=== PATIENT | female | born 1945 | race Hispanic/Latino ===

== ENCOUNTER 2018-03-11 21:59 | Emergency (ER) | payer OTHER ==
[~2018-03-11] VITALS: Ht 157.5 cm; Wt 75.0 kg
[~2018-03-11 21:59] MED LIST: ASPIRIN EC81 MG PO; CARVEDILOL6.25 MG PO; CLONAZEPAM0.5 MG PO; CLOPIDOGREL75 MG PO; DONEPEZIL HCL5 MG PO; FENOFIBRATE145 MG PO; MEDROL4 MG/DOSE-; MELOXICAM15 MG PO; METFORMIN HCL500 M1 PO; RAMIPRIL5 MG PO; SERTRALINE HCL100 MG PO
--- OUTSIDE RECORDS SUMMARY | 2018-03-11 22:02 | XMS REPORT | Clinical Summary ---
Author Author [facility] Organization [facility] Address Unknown Phone Unavailable Care Team Providers Care Staffing Executive Name Role Phone Asked, Pcp PCP Unavailable Allergies Active Allergy Reactions Severity Noted Date Comments Iodine Itching 02/20/2017 Current Medications Prescription Sig. Disp. Refills Start End Date Status Date ramipril (ALTACE) 5 MG Take 5 mg by mouth daily. Active capsule donepezil (ARICEPT) 10 MG Take 10 mg by mouth Active tablet nightly. carvedilol (COREG) 6.25 Take 6.25 mg by mouth Active MG tablet daily. memantine (NAMENDA) 10 MG Take 10 mg by mouth 2 Active tablet (two) times a day. metFORMIN (GLUCOPHAGE) Take 500 mg by mouth 2 Active 500 mg tablet (two) times a day. sertraline (ZOLOFT) 100 Take 50 mg by mouth Active MG tablet nightly. aspirin (ECOTRIN) 81 MG Take 81 mg by mouth Active enteric coated tablet daily. atorvastatin (LIPITOR) 10 Take 10 mg by mouth Active MG tablet nightly. clopidogrel (PLAVIX) 75 Take 75 mg by mouth Active mg tablet daily. ergocalciferol (VITAMIN Take 50,000 Units by Active D2) 50,000 unit capsule mouth once a week. clonAZEPAM (KlonoPIN) 0.5 Take 0.25 mg by mouth Active MG tablet nightly. acetaminophen-codeine Take 1 tablet by mouth 2 02/18/20 Active (TYLENOL WITH CODEINE #3) (two) times a day as 17 300-30 mg per tablet needed for moderate pain (score 4-6). Active Problems Problem Noted Date Anxiety about health 02/22/2017 Social History Tobacco Use Types Packs/Day Years Used Date Never Smoker Alcohol Use Drinks/Week oz/Week Comments No Sex Assigned at Date Recorded Not on file Last Filed Vital Signs Not on file Plan of Treatment Health Maintenance Due Date Last Done Comments BREAST CANCER SCREENING 1995 COLON CANCER SCREENING 1995 SHINGRIX VACCINE (#1) 1995 ZOSTER VACCINE 2005 PNEUMOCOCCAL 2010 POLYSACCHARIDE VACCINE AGE 65 AND OVER PNEUMOCOCCAL-13 2010 INFLUENZA VACCINE 05/10/2018 Results Not on fileafter 03/10/2017 Insurance Payer Benefit Subscriber ID Type Phone Address Plan / Group TEX[employer] TEXAN[employer]US xxxxxxxxx [facility] Home: [address] [facility] [address] [place] [phone]
[2018-03-11] MEDS ORDERED: HYDROCODONE/APAP 5MG-325MG TAB PO ONE (23:15)
[2018-03-11 23:18] VITALS: BP 150/70
== END 2018-03-11 23:49 | disposition home or self-care (01) ==
LOC: FSED 21:59
DX: M54.6 Pain in thoracic spine (principal); M54.5 Low back pain
CPT/HCPCS: 71046; 80048; 81003; 83880; 85025; 99283

== ENCOUNTER 2018-03-18 20:46 | Observation (INO) | payer OTHER ==
[~2018-03-18] VITALS: Ht 162.6 cm; Wt 77.1 kg
[2018-03-18] MEDS: SODIUM CHLORIDE 0.9% 1000ML 1,000 ML IV SCH (01:10)
--- OUTSIDE RECORDS SUMMARY | 2018-03-18 20:49 | XMS REPORT | Continuity of Care Document ---
Author Author [facility] Organization [facility] Address [address] [place] [address] Phone Unavailable Care Team Providers Care Baler Name Role Phone ANGELES BRYANT MD PCP Insurance Providers Guarantor Francesca Szymanski Address [address] [place] [address] Email NONE Payer [email or web address] Policy Number [id number] Subscriber's Name Francesca Szymanski Relationship 18 Self / Same As Patient Group Name RETIRED Effective Date 10 Advance Directives Directive Response Recorded Date/Time Does the patient have an advance directive? No 06/08/13 11:42am If yes, is advance directive on file with [facility]? No 06/08/13 11:42am If not on file with [facility] will patient provide a copy? Yes 04/14/16 3:07pm Do you have a Directive to Physician? No 03/11/18 11:03pm Do you have a Medical Power of Community Health Educator? No 03/11/18 11:03pm Do you have an out of hospital Do Not Resuscitate Order? No 03/11/18 11:03pm Do you have any special needs we should be aware of? No 03/11/18 11:03pm Do you have a support person here with you today? Yes 03/11/18 11:03pm Did patient receive Notice of Privacy Practices? Yes 03/11/18 11:03pm Did patient receive patient rights and responsibilities? Yes 03/11/18 11:03pm Problems No problem information available. Medications Current Home Medications Medication Dose Units Route Directions Days Qty Instructions Start Date Aspirin (Aspirin Ec) 81 Mg Tablet.dr 81 Mg Oral Daily Carvedilol 6.25 Mg Tablet 6.25 Mg Oral Twice A Day Clonazepam 0.5 Mg Tablet 0.5 Mg Oral Daily Clopidogrel Bisulfate (Clopidogrel) 75 Mg Tablet 75 Mg Oral Daily Donepezil Hcl 5 Mg Tablet 5 Mg Oral Daily Fenofibrate Nanocrystallized (Fenofibrate) 145 Mg Tablet 145 Mg Oral Daily Meloxicam 15 Mg Tablet 15 Mg Oral Daily Metformin Hcl (Metformin Hcl Er) 500 Mg Tab.er.24h 500 Mg Oral Twice A Day Methylprednisolone (Medrol Dose Pack) 4 Mg/Dose Pack Tab Ramipril 5 Mg Capsule 5 Mg Oral Daily Sertraline Hcl 100 Mg Tablet 100 Mg Oral Daily Social History Smoking Status Start Date Stop Date Never Smoker Hospital Discharge Instructions No hospital discharge instruction information available. Plan of Care Discharge Date 03/11/18 11:49pm Disposition HOME, SELF-CARE Condition at Discharge Stable Instructions/Education Provided Back Pain Forms Provided Work/School Excuse Prescriptions See Medication Section Functional Status No functional status information available. Allergies, Adverse Reactions, Alerts Allergen Type Severity Reaction Status Last Updated IODINE/SHELLFISH Allergy Intermediate Active 08/18/13 Immunizations No immunization information available. Vital Signs Acute Vital Signs Vital Response Date/Time Temperature (Fahrenheit) 97.0 degrees F (97.6 - 99.5) 03/11/2018 11:18pm Pulse Pulse Rate (adult) 78 bpm (60 - 90) 03/11/2018 11:18pm Respiratory Rate 20 bpm (12 - 24) 03/11/2018 11:18pm Blood Pressure 150/70 mm Hg 03/11/2018 11:18pm Height 5 ft 2 in 03/11/2018 10:34pm Weight 165.31 lb 03/11/2018 10:34pm Body Mass Index 30.2 kg/m^2 03/11/2018 10:34pm Results No relevant diagnostic test, laboratory data and/or discharge summary information available. Procedures No procedure information available. Encounters Encounter Location Arrival/Admit Date Discharge/Depart Date Attending Provider Departed Emergency Room [facility] 03/11/18 9:59pm 11:49pm WON SLAUGHTER MD
--- OUTSIDE RECORDS SUMMARY | 2018-03-18 20:49 | XMS REPORT | Clinical Summary ---
Author Author [facility] Address Unknown Phone Unavailable Care Team Providers Care Corporate Real Estate Specialist Name Role Phone Asked, Pcp PCP Unavailable [...] INFLUENZA VACCINE 05/10/2018 Results Not on fileafter 03/17/2017 Insurance Payer Benefit Subscriber ID Type Phone Address Plan / Group [employer] TEX[employer] xxxxxxxxx [facility] Home: [address] [facility] [address] [place] [phone]
[2018-03-18] MEDS ORDERED: PANTOPRAZOLE 40 MG 10ML VIAL IV STA (20:53)
[2018-03-18] MEDS ORDERED: MORPHINE SULFATE 2 MG/ML SYR IV STA (20:53)
[2018-03-18] MEDS ORDERED: ASPIRIN 81 MG CHEW TAB PO ONE (21:00)
[2018-03-18] MEDS ORDERED: NITROGLYCERIN 2% OINT 1 GM PKT TOP ONE (21:00)
[2018-03-18] MEDS ORDERED: ONDANSETRON HCL 4 MG ORAL DISINTEGRATING TAB PO ONE (21:00)
[2018-03-18 21:02] LABS: BASOPHILS % 0.4 % (0.0-1.0); EOSINOPHILS # (AUTO) 0.2 (0.0-0.4); EOSINOPHILS % 2.1 % (0.0-6.0); HEMATOCRIT 38.4 % (34.2-44.1); HEMOGLOBIN 12.9 g/dL (12.0-16.0); LYMPHOCYTES # (AUTO) 2.2 (1.0-3.2); LYMPHOCYTES % 26.5 % (18.0-39.1); MEAN CORPUSCULAR HEMOGLOBIN 28.6 pg (28-32); MEAN CORPUSCULAR HGB CONC 33.6 g/dL (31-35); MEAN CORPUSCULAR VOLUME 85.1 fL (81-99); MONOCYTES # (AUTO) 0.4 (0.2-0.8); MONOCYTES % 4.7 % (4.4-11.3); NEUTROPHILS # (AUTO) 5.5 (2.1-6.9); NEUTROPHILS % 65.9 % (38.7-80.0); PLATELET COUNT 205 x10e3/uL (140-360); RED BLOOD COUNT 4.51 x10e6/uL (3.6-5.1); RED CELL DISTRIBUTION WIDTH 15.3 % (11.7-14.4)
[2018-03-18 21:14] LABS: INR 1.01; PARTIAL THROMBOPLASTIN TIME 25.9 seconds (23.8-35.5); PROTHROMBIN TIME 12.5 seconds (11.9-14.5)
[2018-03-18 21:20] LABS: ALANINE AMINOTRANSFERASE 41 IU/L (0-55); ALBUMIN 4.3 g/dL (3.5-5.0); ALKALINE PHOSPHATASE 97 IU/L (40-150); ANION GAP 16.9 mmol/L (8-16); BLOOD UREA NITROGEN 20 mg/dL (7-26); BUN/CREATININE RATIO 17 (6-25); CALCIUM 10.4 mg/dL (8.4-10.2); CARBON DIOXIDE 23 mmol/L (22-29); CHLORIDE 106 mmol/L (98-107); CREATINE KINASE 46 IU/L (29-168); CREATININE, SERUM 1.21 mg/dL (0.57-1.11); EST GLOMERULAR FILTRATION RATE 44 ML/MIN (60-); GLUCOSE 131 mg/dL (74-118); MAGNESIUM 1.9 MG/DL (1.3-2.1); POTASSIUM 3.9 mmol/L (3.5-5.1); SODIUM 142 mmol/L (136-145)
[2018-03-18 21:26] LABS: CLARITY,URINE HAZY (CLEAR); COLOR,URINE YELLOW (YELLOW); LEUKOCYTE ESTERASE ,URINE 2+ (NEGATIVE); NITRITE,URINE NEGATIVE (NEGATIVE); PROTEIN,URINE DIPSTICK TRACE (NEGATIVE)
[2018-03-18 21:27] LABS: BILIRUBIN,URINE NEGATIVE (NEGATIVE); KETONES,URINE NEGATIVE (NEGATIVE); URINE UROBILINOGEN 0.2 mg/dL (0.2 - 1)
[2018-03-18 21:34] LABS: BACTERIA,URINE MODERATE /HPF; EPITHELIAL CELLS,URINE MODERATE /LPF; RBC,URINE 0-5 /HPF (0-5); WBC,URINE (MAN) >50 /HPF (0-5)
[2018-03-18] MEDS ORDERED: CEFTRIAXONE SOD 1 GM VIAL IV SCH (21:45)
--- NOTE | 2018-03-18 21:50 | Diagnostic Imaging Report ---
EXAMINATION: CHEST SINGLE (PORTABLE) INDICATION: Chest pain. COMPARISON: None FINDINGS: TUBES and LINES: None. LUNGS: Lungs are well inflated. Lungs are clear. There is no evidence of pneumonia or pulmonary edema. PLEURA: No pleural effusion or pneumothorax. HEART AND MEDIASTINUM: The cardiomediastinal silhouette is unremarkable. BONES AND SOFT TISSUES: No acute osseous lesion. Soft tissues are unremarkable. UPPER ABDOMEN: No free air under the diaphragm. IMPRESSION: No acute thoracic abnormality. Signed by: Dr. Albert Cespedes M.D. on 03/18/2018 9:46 PM
--- OUTSIDE RECORDS SUMMARY | 2018-03-18 21:57 | XMS REPORT ---
[facility] Address Unknown Phone Unavailable Care Team Providers Care Chemical Detection Expert Name Role Phone COLE MOJICA Unavailable Unavailable Problems This patient has no known problems. Allergies, Adverse Reactions, Alerts This patient has no known allergies or adverse reactions. Medications This patient has no known medications. Results Test Description Test Time Test Comments Text Results Atomic Results Result Comments CHEST SINGLE (PORTABLE) 2018-03-18 21:46:00 [facility] [address] [place] [address] Patient Name: CLAIR YATES MR #: [id number] : 1945 Age/Sex: 73/ F Req #: [id number] Adm Physician: Ordered by: COLE MOJICA MD Report #: [id number] Location: ER Room/Bed: ___ Procedure: [id number] DX/CHEST SINGLE (PORTABLE) Exam Date: 03/18/18 Exam Time: 2119 REPORT STATUS: Signed EXAMINATION: CHEST SINGLE (PORTABLE) INDICATION: Chest pain. COMPARISON: None FINDINGS: TUBES and LINES: None. LUNGS: Lungs are well inflated. Lungs are clear. There is no evidence of pneumonia or pulmonary edema. PLEURA: No pleural effusion or pneumothorax. HEART AND MEDIASTINUM: The cardiomediastinal silhouette is unremarkable. BONES AND SOFT TISSUES: No acute osseous lesion. Soft tissues are unremarkable. UPPER ABDOMEN: No free air under the diaphragm. IMPRESSION: No acute thoracic abnormality. Signed by: Dr. Albert Cespedes M.D. on 03/18/2018 9:46 PM Dictated By: ALBERT CHAMBERS MD 45 Transcribed By: MIAN on 03/18/182145 COPY TO: COLE MOJICA MD
--- OUTSIDE RECORDS SUMMARY | 2018-03-18 21:57 | XMS REPORT | Clinical Summary ---
Author Author [facility] Organization [facility] Address Unknown Phone Unavailable Care Team Providers Care Tubular Splitting Machine Tender Name Role Phone Asked, Pcp PCP Unavailable [...] Address Plan / Group TEXANPLUS TEXANPLUS xxxxxxxxx [facility] Home: [address] [facility] [address] [place] [phone]
[2018-03-18] MEDS ORDERED: MORPHINE SULFATE 2 MG/ML SYR IV PRN (22:00)
[2018-03-18] MEDS ORDERED: ONDANSETRON HCL INJ 2 MG/ML VIAL IV PRN (22:00)
[2018-03-18] MEDS ORDERED: DEXTROSE 50% SYRINGE 50 ML IV PRN (22:15)
[2018-03-18] MEDS: FAMOTIDINE 20 MG/2 ML VIAL IV SCH (22:35)
[2018-03-18 22:40] VITALS: BP 144/67
[2018-03-18 23:00] VITALS: BP 144/67
[2018-03-18] MEDS ORDERED: ATORVASTATIN CA10 MG PO (23:48)
[2018-03-18] MEDS ORDERED: NAMENDA10 MG PO (23:48)
[2018-03-18] MEDS ORDERED: VITAMIN D250000 UNIT PO (23:48)
[2018-03-18] MEDS ORDERED: ULTRACET TABLE1 EACH PO (23:48)
[2018-03-19] VITALS (7 sets, daily range): BP systolic 112–162; BP diastolic 55–72
[2018-03-19] MEDS: SODIUM CHLORIDE 0.9% 1000ML 1,000 ML IV SCH ×2 (01:10→08:19)
[2018-03-19] MEDS: FAMOTIDINE 20 MG/2 ML VIAL IV SCH (08:15)
[2018-03-19] MEDS: INSULIN REGULAR, HUMAN 100 UNIT/1 ML 3ML VIAL SQ SCH ×4 (08:22→20:35)
[2018-03-19 08:37] LABS: BASOPHILS % 0.3 % (0.0-1.0); EOSINOPHILS # (AUTO) 0.2 (0.0-0.4); EOSINOPHILS % 2.8 % (0.0-6.0); HEMATOCRIT 32.2 % (34.2-44.1); HEMOGLOBIN 10.5 g/dL (12.0-16.0); LYMPHOCYTES % 30.9 % (18.0-39.1); MEAN CORPUSCULAR HEMOGLOBIN 28.3 pg (28-32); MEAN CORPUSCULAR HGB CONC 32.6 g/dL (31-35); MEAN CORPUSCULAR VOLUME 86.8 fL (81-99); MONOCYTES # (AUTO) 0.3 (0.2-0.8); MONOCYTES % 4.8 % (4.4-11.3); NEUTROPHILS # (AUTO) 3.9 (2.1-6.9); NEUTROPHILS % 60.9 % (38.7-80.0); PLATELET COUNT 151 x10e3/uL (140-360); RED BLOOD COUNT 3.71 x10e6/uL (3.6-5.1); RED CELL DISTRIBUTION WIDTH 15.5 % (11.7-14.4)
[2018-03-19] MEDS ORDERED: ASPIRIN 81 MG ENTERIC COATED PO SCH (09:00)
[2018-03-19 09:03] LABS: ALANINE AMINOTRANSFERASE 29 IU/L (0-55); ALBUMIN 3.4 g/dL (3.5-5.0); ALBUMIN/GLOBULIN RATIO 1.2 (0.8-2.0); ALKALINE PHOSPHATASE 68 IU/L (40-150); ANION GAP 12.9 mmol/L (8-16); BLOOD UREA NITROGEN 21 mg/dL (7-26); BUN/CREATININE RATIO 23 (6-25); CALCIUM 8.9 mg/dL (8.4-10.2); CARBON DIOXIDE 24 mmol/L (22-29); CHLORIDE 109 mmol/L (98-107); CHOL/HDL RATIO 4.9 (3.0-3.6); CHOLESTEROL 131 MD/DL (0-199); CREATINE KINASE 30 IU/L (29-168); CREATININE, SERUM 0.91 mg/dL (0.57-1.11); EST GLOMERULAR FILTRATION RATE > 60 ML/MIN (60-); GLUCOSE 148 mg/dL (74-118); HDL CHOLESTEROL 27 MG/DL (40-60); LDL CHOLESTEROL 40 MG/DL (60-130); POTASSIUM 3.9 mmol/L (3.5-5.1); SODIUM 142 mmol/L (136-145); TRIGLYCERIDES 322 MG/DL (0-149)
[2018-03-19] MEDS ORDERED: TRAMADOL/APAP 37.5MG-325MG TAB PO PRN (09:45)
[2018-03-19] MEDS: SODIUM CHLORIDE 0.45% 1,000 ML IV SCH ×2 (10:30→23:30)
--- NOTE | 2018-03-19 14:20 | History and Physical ---
PRIMARY CARE PHYSICIAN: Dr. Usama Hansen CHIEF COMPLAINT: "I am not feeling well." HISTORY: Patient is a 73-year-old female who came in not feeling well. The patient denied of any chest pain. She does have urinary tract infection. The patient has no abdominal pain, no nausea or vomiting. She is stable at this time. No symptoms. PAST MEDICAL HISTORY: Hypertension, depression, anxiety disorder, baseline dementia, diabetes type 2, dyslipidemia. PAST SURGICAL HISTORY: Noncontributory. SOCIAL HISTORY: She lives at home with her son. She does not smoke or use alcohol. No recreational drug use. ALLERGIES: TO IODINE AND SHELLFISH. HOME MEDICATIONS: List is reviewed. She is on aspirin, Lipitor, Coreg, clonazepam, Plavix, Aricept, Namenda, metformin, ramipril, Zoloft, and Ultracet p.r.n. PHYSICAL EXAMINATION: VITAL SIGNS: Temperature is 98, blood pressure 112/55, pulse rate is 53, respirations 18. GENERAL: The patient is not in acute distress, she is awake. HEENT: Normocephalic, atraumatic. Sclerae anicteric. NECK: Supple grossly. PULMONARY: Clear. CARDIOVASCULAR: Bradycardia. ABDOMEN: Soft, non-distention. EXTREMITIES: No gross cyanosis or edema. NEURO: No focal deficit. Moving all extremities. LABORATORY: Sodium is 142, potassium 3.9, chloride 109, bicarb 24, BUN is 21, creatinine is 1.2, glucose is 148. WBC is 8.3, hemoglobin 12.9, hematocrit 38, platelet is 205,000. Urinalysis, negative sugars, trace blood, negative nitrite, leukocyte esterase 2+, WBC greater than 50, moderate bacteria. Urine culture is still pending. IMAGING: Chest x-ray is unremarkable. IMPRESSION: 1. Urinary tract infection. 2. Dehydration. PLAN: CT abdomen and pelvis without contrast. Repeated lab work. Discontinue IV fluids normal saline. Half normal saline at 75 mL an hour. Insulin sliding scale coverage. Resume patient's home medications. The patient remained on observation and should be able to go home if improved within 24 hours. Job#: [id number]
[2018-03-19] MEDS: MEMANTINE 10 MG TAB PO SCH (16:12)
--- NOTE | 2018-03-19 16:17 | Diagnostic Imaging Report ---
EXAM: CT Abdomen and Pelvis WITHOUT contrast INDICATION: \S\PAIN / UTI \[id number] \S\1521 COMPARISON: None. TECHNIQUE: Abdomen and pelvis were scanned utilizing a multidetector helical scanner from the lung base to the pubic symphysis without administration of IV contrast. Absence of intravenous contrast decreases sensitivity for detection of focal lesions and vascular pathology. Coronal and sagittal reformations were obtained. Routine protocol was performed. IV CONTRAST: None ORAL CONTRAST: Water COMPLICATIONS: None RADIATION DOSE: Total DLP: 617.44 mGy*cm Estimated effective dose: (DLP x 0.015 x size factor) mSv CTDIvol has been reviewed. It is below the limits set by the Radiation Protocol Committee (RPC). FINDINGS: LINES and TUBES: None. LOWER THORAX: Unremarkable. Mild dependent atelectasis. HEPATOBILIARY: Hepatic steatosis. Otherwise, unenhanced liver is unremarkable. No biliary ductal dilation. GALLBLADDER: Surgically absent. SPLEEN: No splenomegaly. PANCREAS: Fatty involution of the pancreas. No ductal dilatation. ADRENALS: No adrenal nodules KIDNEYS/URETERS: No hydronephrosis. Limited for evaluation of renal parenchyma without intravenous contrast. Mild nonspecific bilateral perinephric fat stranding. Mild focal left inferior pole scarring. No stones. GI TRACT: No abnormal distention, wall thickening, or evidence of bowel obstruction. Sigmoid diverticulosis without evidence of diverticulitis. Appendix is not visualized. PELVIC ORGANS/BLADDER: Hysterectomy. Bladder is unremarkable. LYMPH NODES: No lymphadenopathy. VESSELS: Mild to moderate aortoiliac atherosclerotic disease. PERITONEUM / RETROPERITONEUM: No free air or fluid. BONES: Degenerative changes of lumbar spine. Grade 1 retrolisthesis of L5 in relation to L4. SOFT TISSUES: Unremarkable. IMPRESSION: 1. Limited study without intravenous contrast. 2. No evidence of nephrolithiasis or obstructive urolithiasis. 3. Hepatic steatosis. 4. Sigmoid diverticulosis without evidence of diverticulitis. Signed by: Dr. Nic Garcia MD on 03/19/2018 4:14 PM
[2018-03-19 17:53] LABS: CREATINE KINASE 39 IU/L (29-168)
[2018-03-19] MEDS: CEFTRIAXONE SOD 1 GM VIAL IV SCH (20:32)
[2018-03-19] MEDS ORDERED: DONEPEZIL HCL 5 MG TAB PO SCH (21:00)
[2018-03-19] MEDS ORDERED: ATORVASTATIN 10 MG TAB PO SCH (21:00)
[2018-03-19] MEDS: QUETIAPINE FUMARATE 25 MG TAB PO PRN (22:31)
[2018-03-20] VITALS: BP 156/67
[2018-03-20] MEDS ORDERED: ZIPRASIDONE 20 MG VIAL IM PRN (00:45)
[2018-03-20 04:00] VITALS: BP 133/60
[2018-03-20 07:11] LABS: ANION GAP 13.1 mmol/L (8-16); CALCIUM 9.2 mg/dL (8.4-10.2); CREATININE, SERUM 0.92 mg/dL (0.57-1.11); POTASSIUM 4.1 mmol/L (3.5-5.1)
[2018-03-20 07:59] VITALS: BP 164/84
[2018-03-20] MEDS: MEMANTINE 10 MG TAB PO SCH (08:20)
[2018-03-20] MEDS: CEFTRIAXONE SOD 1 GM VIAL IV SCH (08:20)
[2018-03-20] MEDS: QUETIAPINE FUMARATE 25 MG TAB PO PRN (08:20)
[2018-03-20] MEDS: INSULIN REGULAR, HUMAN 100 UNIT/1 ML 3ML VIAL SQ SCH (08:20)
[2018-03-20 08:43] VITALS: BP 164/84
[2018-03-20] MEDS ORDERED: CLOPIDOGREL BISULFATE 75 MG TAB PO SCH (09:00)
[2018-03-20] MEDS ORDERED: ASPIRIN 81 MG ENTERIC COATED PO SCH (09:00)
[2018-03-20] MEDS ORDERED: SERTRALINE HCL 100 MG TAB PO SCH (09:00)
[2018-03-20] MEDS ORDERED: RAMIPRIL 5 MG CAP PO SCH (09:00)
[2018-03-20] MEDS ORDERED: CIPRO500 MG PO (09:15)
--- NOTE | 2018-03-20 15:56 | Discharge Summary ---
PRIMARY CARE PHYSICIAN: Dr. Usama Hansen. CHIEF COMPLAINT: Urinary tract infection. HISTORY: Patient is a 73-year-old female who came in with some altered mental status, confusion. She does have baseline dementia. Patient stated to the son that she is not feeling well. The patient subsequently was brought into the hospital. HOSPITAL COURSE: She does have a urinary tract infection. The patient is stable. A CT scan of abdomen and pelvis was otherwise unremarkable. Patient has hepatic steatosis. Sigmoid diverticulosis without diverticulitis. THE PATIENT IS ALLERGIC TO IODINE. Therefore, no iodine was used. Patient is stable. No CVA tenderness. No sign of sepsis. No fever. The patient is stable, discharged home today. DISCHARGE MEDICATIONS: Cipro 500 mg twice a day for 7 days. She will resume all home medications. Job#: [id number] EV
== END 2018-03-20 09:55 | disposition home or self-care (01) ==
LOC: ER 20:46 → ERHOLD 21:55 → MED/SURG 22:34
PROVIDERS: ADMIT Internal Medicine; ATTEND Internal Medicine
DX: N39.0 Urinary tract infection, site not specified (principal); R07.9 Chest pain, unspecified; I10 Essential (primary) hypertension; E11.9 Type 2 diabetes mellitus without complications; E78.5 Hyperlipidemia, unspecified; F41.9 Anxiety disorder, unspecified; F03.90 Unspecified dementia, unspecified severity, without behavioral disturbance, psychotic disturbance, mood disturbance, and anxiety; E86.0 Dehydration; K76.0 Fatty (change of) liver, not elsewhere classified; K57.30 Diverticulosis of large intestine without perforation or abscess without bleeding; Z91.013 Allergy to seafood
CPT/HCPCS: 36415 ×3; 71045; 74176; 80048; 80053 ×2; 80061; 81001; 82550 ×2; 82553 ×2; 82607; 82948 ×2; 83735; 83880; 84443; 84484 ×2; 85025 ×2; 85610; 85730; 87086; 87186; 93005; 99284; G0378 ×3; J0696 ×3; J2270; J3486; J7030

== ENCOUNTER → 2019-02-20 | Day surgery (SDC) | payer MEDICARE ==
[2019-02-19 14:43] LABS: BASOPHILS % 0.4 % (0.0-1.0); EOSINOPHILS # (AUTO) 0.2 (0.0-0.4); EOSINOPHILS % 2.1 % (0.0-6.0); HEMATOCRIT 39.4 % (34.2-44.1); HEMOGLOBIN 12.4 g/dL (12.0-16.0); LYMPHOCYTES # (AUTO) 1.4 (1.0-3.2); MEAN CORPUSCULAR HGB CONC 31.5 g/dL (31-35); MEAN CORPUSCULAR VOLUME 88.9 fL (81-99); MONOCYTES # (AUTO) 0.3 (0.2-0.8); MONOCYTES % 3.9 % (4.4-11.3); NEUTROPHILS # (AUTO) 6.1 (2.1-6.9); NEUTROPHILS % 76.2 % (38.7-80.0); PLATELET COUNT 191 x10e3/uL (140-360); RED BLOOD COUNT 4.43 x10e6/uL (3.6-5.1)
[2019-02-19 14:55] LABS: INR 0.94; PROTHROMBIN TIME 13.1 seconds (11.9-14.5)
[2019-02-19 15:04] LABS: ALBUMIN 3.8 g/dL (3.5-5.0); ANION GAP 13.5 mmol/L (8-16); CALCIUM 9.8 mg/dL (8.4-10.2); CREATININE, SERUM 0.95 mg/dL (0.57-1.11); POTASSIUM 4.5 mmol/L (3.5-5.1)
[2019-02-20] VITALS (10 sets, daily range): BP systolic 103–140; BP diastolic 54–77
[~2019-02-20] VITALS: Ht 162.6 cm; Wt 74.8 kg
[~2019-02-20] MED LIST changes: +ATORVASTATIN CA10 MG PO; +CIPRO500 MG PO; +DIPHENHYDRAMINE HCL INJ 50 MG/ML VIAL ONE; +FAMOTIDINE 20 MG/2 ML VIAL IV ONE; +FENTANYL CITRATE/PF 100MCG/2 ML INJ ONE; +HEPARIN SOD/SOD CHLORIDE 2,000 ML ONE; +IOPAMIDOL 370 MG/ML 200 ML INFUS..BTL INJ ONE; +LIDOCAINE HCL 2% LOCAL 20 ML VIAL ONE; +METHYLPREDNISOLONE SOD SUCC 125 MG/2ML VIAL ONE; +MIDAZOLAM HCL 2 MG/2 ML VIAL ONE; +NAMENDA10 MG PO; +SODIUM CHLORIDE 0.9% 1000ML 1,000 ML ONE; +ULTRACET TABLE1 EACH PO; +VERAPAMIL HCL 2.5 MG/ML 2 ML VIAL ONE; +VITAMIN D250000 UNIT PO
--- OUTSIDE RECORDS SUMMARY | 2019-02-20 07:38 | XMS REPORT | Clinical Summary ---
Author Author [facility] Organization [facility] Address Unknown Phone Unavailable Care Team Providers Care President Commercial Bank Name Role Phone Asked, No Pcp PCP Unavailable Allergies Comments Active Allergy Reactions Severity Noted Date Iodine Itching 02/20/2017 Medications End Date Status Medication Sig Dispensed Refills Start Date Active ramipril (ALTACE) 5 MG Take 5 mg by 0 capsule mouth daily. Active donepezil (ARICEPT) 10 MG Take 10 mg by 0 tablet mouth nightly. Active carvedilol (COREG) 6.25 Take 6.25 mg 0 MG tablet by mouth daily. Active memantine (NAMENDA) 10 MG Take 10 mg by 0 tablet mouth 2 (two) times a day. Active metFORMIN (GLUCOPHAGE) Take 500 mg 0 500 mg tablet by mouth 2 (two) times a day. Active sertraline (ZOLOFT) 100 Take 50 mg by 0 MG tablet mouth nightly. Active aspirin (ECOTRIN) 81 MG Take 81 mg by 0 enteric coated tablet mouth daily. Active atorvastatin (LIPITOR) 10 Take 10 mg by 0 MG tablet mouth nightly. Active clopidogrel (PLAVIX) 75 Take 75 mg by 0 mg tablet mouth daily. Active ergocalciferol (VITAMIN Take 50,000 0 D2) 50,000 unit capsule Units by mouth once a week. Active clonAZEPAM (KlonoPIN) 0.5 Take 0.25 mg 0 MG tablet by mouth nightly. Active acetaminophen-codeine Take 1 tablet 0 (TYLENOL WITH CODEINE #3) by mouth 2 7 300-30 mg per tablet (two) times a day as needed for moderate pain (score 4-6). Active Problems Problem Noted Date Anxiety about health 02/22/2017 Social History Date Tobacco Use Types Packs/Day Years Used Never Smoker Alcohol Use Drinks/Week oz/Week Comments No Sex Assigned at Date Recorded Not on file Industry Job Start Date Occupation Not on file Not on file Not on file Travel End Travel History Travel Start No recent travel history available. Last Filed Vital Signs Not on file Plan of Treatment Health Maintenance Due Date Last Done Comments BREAST CANCER SCREENING 1995 COLON CANCER SCREENING 1995 SHINGLES VACCINES (#1) 1995 65+ PNEUMOCOCCAL VACCINE 2010 (1 of 2 - PCV13) PNEUMOCOCCAL 2010 POLYSACCHARIDE VACCINE AGE 65 AND OVER INFLUENZA VACCINE 05/10/2019 Results Not on fileafter 02/19/2018 Insurance Payer Benefit Subscriber ID Type Phone Address Plan / Group TEX[employer] TEX[employer] xxxxxxxxx [facility] Advance Directives Patient has advance care planning documents on file. For more information, santosh stuart contact: Coleman Luna [address] [place] [address]
--- OUTSIDE RECORDS SUMMARY | 2019-02-20 07:39 | XMS REPORT | Continuity of Care Document ---
Author Author [facility] Interface Address Unknown Phone Unavailable Problems Problem Status Onset Date Classification Date Reported Comments Source Z12.31 - ENCNTR SCREEN MAMMOGRAM FOR MA Active 01/08/2016 [facility] [place] Chest pain Active Problem 03/20/2018 [facility] [place] Renal insufficiency Active Problem 03/20/2018 [facility] UTI Active Problem 03/20/2018 [facility] Cholesterol Active Problem 03/18/2016 [facility] [place] Depression Resolved Problem 03/18/2016 [facility] [place] Diabetes mellitus Active Problem 03/18/2016 [facility] [place] DM - Diabetes mellitus Active Problem 03/18/2016 [facility] [place] HTN - Hypertension Active Problem 03/18/2016 [facility] [place] Hyperlipidemia Active Problem 03/18/2016 [facility] [place] Hysterectomy Active Problem 03/18/2016 [facility] [place] Medications Medication Details Route Status Patient Instructions Ordering Provider Order Date Source Fenofibrate Nanocrystallized (Fenofibrate) 145 Mg Tablet, 145 Mg Oral Daily Active 03/18/2018 [facility] Meloxicam 15 Mg Tablet, 15 Mg Oral Daily Active 03/18/2018 [facility] Methylprednisolone (Medrol Dose Pack) 4 Mg/Dose Pack Tab, Active 03/18/2018 [facility] Aspirin (Aspirin Ec) 81 Mg Tablet.dr Daily Active [facility] Atorvastatin Calcium 10 Mg Tablet Bedtime Active [facility] Carvedilol 6.25 Mg Tablet Twice A Day Active [facility] Ciprofloxacin Hcl (Cipro) 500 Mg Tablet Every 12 Hours Active [facility] Clonazepam 0.5 Mg Tablet Daily Active [facility] Clopidogrel Bisulfate (Clopidogrel) 75 Mg Tablet Daily Active [facility] Donepezil Hcl 5 Mg Tablet Bedtime Active [facility] Ergocalciferol (Vitamin D2) (Vitamin D2) 50,000 Unit Capsule Use As Directed Active [facility] Memantine Hcl (Namenda) 10 Mg Tablet Twice A Day Active [facility] Metformin Hcl (Metformin Hcl Er) 500 Mg Tab.er.24h Twice A Day Active [facility] Ramipril 5 Mg Capsule Daily Active [facility] Sertraline Hcl 100 Mg Tablet Daily Active [facility] Tramadol Hcl/Acetaminophen (Ultracet Tablet) 1 Each Tablet Every 4 Hours as needed for Pain Active [facility] Allergies, Adverse Reactions, Alerts Substance Category Reaction Severity Reaction type Status Date Reported Comments Source IODINE/SHELLFISH Intermediate Allergy to Substance Active 08/18/2013 [facility] Immunizations Immunization Date Given Site Status Last Updated Comments Source pneumococcal 23-valent vaccine 12/05/2009 Right arm completed Elif [facility] influenza virus vaccine, inactivated 12/05/2009 Left Arm completed Elif Arias Results Order Name Results Value Reference Range Date Interpretation Comments Source Capillary blood glucose measurement by glucometer (mass/volume) Capillary blood glucose measurement by glucometer (mass/volume) 143 70 - 120 03/20/2018 [facility] Estimated glomerular filtration rate (GFR) determination Estimated glomerular filtration rate (GFR) determination 60 60 03/20/2018 [facility] Glucose measurement Glucose measurement 142 74 - 118 03/20/2018 [facility] Serum or plasma anion gap Serum or plasma anion gap 13.1 8 - 16 03/20/2018 [facility] Serum or plasma calcium measurement (mass/volume) Serum or plasma calcium measurement (mass/volume) 9.2 8.4 - 10.2 03/20/2018 [facility] Serum or plasma carbon dioxide, total measurement (moles/volume) Serum or plasma carbon dioxide, total measurement (moles/volume) 24 22 - 29 03/20/2018 [facility] Serum or plasma chloride measurement (moles/volume) Serum or plasma chloride measurement (moles/volume) 111 98 - 107 03/20/2018 [facility] Serum or plasma creatinine measurement (mass/volume) Serum or plasma creatinine measurement (mass/volume) 0.92 0.57 - 1.11 03/20/2018 [facility] Serum or plasma potassium measurement (moles/volume) Serum or plasma potassium measurement (moles/volume) 4.1 3.5 - 5.1 03/20/2018 [facility] Serum or plasma sodium measurement (moles/volume) Serum or plasma sodium measurement (moles/volume) 144 136 - 145 03/20/2018 [facility] Serum or plasma urea nitrogen measurement (mass/volume) Serum or plasma urea nitrogen measurement (mass/volume) 16 7 - 26 03/20/2018 [facility] Serum or plasma urea nitrogen/creatinine mass ratio Serum or plasma urea nitrogen/creatinine mass ratio 17 6 - 25 03/20/2018 [facility] Serum or plasma creatine kinase MB measurement (mass/volume) Serum or plasma creatine kinase MB measurement (mass/volume) 0.60 0 - 5.0 03/19/2018 [facility] Serum or plasma creatine kinase measurement (enzymatic activity/volume) Serum or plasma creatine kinase measurement (enzymatic activity/volume) 39 29 - 168 03/19/2018 [facility] Troponin I measurement by highly sensitive enzyme immunoassay Troponin I measurement by highly sensitive enzyme immunoassay null 0 - 0.300 03/19/2018 [facility] Automated blood basophil count (count/volume) Automated blood basophil count (count/volume) 0.0 0.0 - 0.1 03/19/2018 [facility] Automated blood basophil count as percentage of total leukocytes Automated blood basophil count as percentage of total leukocytes 0.3 0.0 - 1.0 03/19/2018 [facility] Automated blood eosinophil count Automated blood eosinophil count 0.2 0.0 - 0.4 03/19/2018 [facility] Automated blood eosinophil count as percentage of total leukocytes Automated blood eosinophil count as percentage of total leukocytes 2.8 0.0 - 6.0 03/19/2018 [facility] Automated blood hematocrit (volume fraction) Automated blood hematocrit (volume fraction) 32.2 34.2 - 44.1 03/19/2018 [facility] Automated blood lymphocyte count as percentage ot total leukocytes Automated blood lymphocyte count as percentage ot total leukocytes 30.9 18.0 - 39.1 03/19/2018 [facility] Automated blood monocyte count as percentage of total leukocytes Automated blood monocyte count as percentage of total leukocytes 4.8 4.4 - 11.3 03/19/2018 [facility] Automated blood neutrophil count Automated blood neutrophil count 3.9 2.1 - 6.9 03/19/2018 [facility] Automated blood platelet count (count/volume) Automated blood platelet count (count/volume) 151 140 - 360 03/19/2018 [facility] Automated blood segmented neutrophil count as percentage of total leukocytes Automated blood segmented neutrophil count as percentage of total leukocytes 60.9 38.7 - 80.0 03/19/2018 [facility] Automated erythrocyte mean corpuscular hemoglobin (mass per erythrocyte) Automated erythrocyte mean corpuscular hemoglobin (mass per erythrocyte) 28.3 28 - 32 03/19/2018 [facility] Automated erythrocyte mean corpuscular hemoglobin concentration measurement (mass/volume) Automated erythrocyte mean corpuscular hemoglobin concentration measurement (mass/volume) 32.6 31 - 35 03/19/2018 [facility] Automated erythrocyte mean corpuscular volume Automated erythrocyte mean corpuscular volume 86.8 81 - 99 03/19/2018 [facility] Blood cobalamin (vitamin B12) measurement (mass/volume) Blood cobalamin (vitamin B12) measurement (mass/volume) 353 213 - 816 03/19/2018 [facility] Blood erythrocytes automated count (number/volume) Blood erythrocytes automated count (number/volume) 3.71 3.6 - 5.1 03/19/2018 [facility] Blood hemoglobin measurement (moles/volume) Blood hemoglobin measurement (moles/volume) 10.5 12.0 - 16.0 03/19/2018 [facility] Blood leukocytes automated count (number/volume) Blood leukocytes automated count (number/volume) 6.40 4.8 - 10.8 03/19/2018 [facility] Blood lymphocytes count (number/volume) Blood lymphocytes count (number/volume) 2.0 1.0 - 3.2 03/19/2018 [facility] Blood monocytes automated count (number/volume) Blood monocytes automated count (number/volume) 0.3 0.2 - 0.8 03/19/2018 [facility] Plasma globulin measurement (mass/volume) Plasma globulin measurement (mass/volume) 2.9 2.3 - 3.5 03/19/2018 [facility] Serum or plasma alanine aminotransferase measurement (enzymatic activity/volume) Serum or plasma alanine aminotransferase measurement (enzymatic activity/volume) 29 0 - 55 03/19/2018 [facility] Serum or plasma albumin measurement (mass/volume) Serum or plasma albumin measurement (mass/volume) 3.4 3.5 - 5.0 03/19/2018 [facility] Serum or plasma albumin/globulin mass ratio Serum or plasma albumin/globulin mass ratio 1.2 0.8 - 2.0 03/19/2018 [facility] Serum or plasma alkaline phosphatase measurement (enzymatic activity/volume) Serum or plasma alkaline phosphatase measurement (enzymatic activity/volume) 68 40 - 150 03/19/2018 [facility] Serum or plasma cholesterol in HDL measurement (mass/volume) Serum or plasma cholesterol in HDL measurement (mass/volume) 27 40 - 60 03/19/2018 [facility] Serum or plasma cholesterol in LDL measurement (mass/volume) Serum or plasma cholesterol in LDL measurement (mass/volume) 40 60 - 130 03/19/2018 [facility] Serum or plasma cholesterol measurement (mass/volume) Serum or plasma cholesterol measurement (mass/volume) 131 0 - 199 03/19/2018 [facility] Serum or plasma protein measurement (mass/volume) Serum or plasma protein measurement (mass/volume) 6.3 6.5 - 8.1 03/19/2018 [facility] Serum or plasma thyrotropin measurement by detection limit <=0.005 miu/l (units/volume) Serum or plasma thyrotropin measurement by detection limit <=0.005 miu/l (units/volume) 3.454 0.350 - 4.940 03/19/2018 [facility] Serum or plasma total bilirubin measurement (mass/volume) Serum or plasma total bilirubin measurement (mass/volume) 0.4 0.2 - 1.2 03/19/2018 [facility] Serum or plasma total cholesterol/cholesterol in HDL mass ratio Serum or plasma total cholesterol/cholesterol in HDL mass ratio 4.9 3.0 - 3.6 03/19/2018 [facility] Serum or plasma triglyceride measurement (mass/volume) Serum or plasma triglyceride measurement (mass/volume) 322 0 - 149 03/19/2018 [facility] Red Cell Distribution Width 15.5 11.7 - 14.4 03/19/2018 [facility] IM GRANULOCYTES % 0.3 0.0 - 1.0 03/19/2018 [facility] Absolute Immature Granulocyte (auto 0.02 0 - 0.1 03/19/2018 [facility] Aspartate Amino Transf (AST/SGOT) 23 5 - 34 03/19/2018 [facility] Activated partial thromboplastin time (aPTT) in platelet poor plasma bycoagulation assay Activated partial thromboplastin time (aPTT) in platelet poor plasma bycoagulation assay 25.9 23.8 - 35.5 03/18/2018 [facility] INR in Platelet poor plasma by Coagulation assay INR in Platelet poor plasma by Coagulation assay 1.01 03/18/2018 [facility] Prothrombin time (PT) in platelet poor plasma by coagulation assay Prothrombin time (PT) in platelet poor plasma by coagulation assay 12.5 11.9 - 14.5 03/18/2018 [facility] Serum or plasma magnesium measurement (mass/volume) Serum or plasma magnesium measurement (mass/volume) 1.9 1.3 - 2.1 03/18/2018 [facility] B-Type Natriuretic Peptide 126.9 0 - 100 03/18/2018 [facility] Automated urine sediment leukocyte count by microscopy (number/high power field) Automated urine sediment leukocyte count by microscopy (number/high power field) null 0 - 5 03/18/2018 [facility] Bacteria detection in urine sediment by light microscopy Bacteria detection in urine sediment by light microscopy MODERATE NONE 03/18/2018 [facility] Epithelial cells detection in urine sediment by light microscopy Epithelial cells detection in urine sediment by light microscopy MODERATE NONE 03/18/2018 [facility] Erythrocytes detection in urine sediment by light microscopy Erythrocytes detection in urine sediment by light microscopy null 0 - 5 03/18/2018 [facility] Specific gravity of Urine by Test strip Specific gravity of Urine by Test strip 1.030 1.010 - 1.025 03/18/2018 [facility] Urine clarity Urine clarity HAZY CLEAR 03/18/2018 [facility] Urine color determination Urine color determination YELLOW YELLOW 03/18/2018 [facility] Urine erythrocytes detection Urine erythrocytes detection TRACE NEGATIVE 03/18/2018 [facility] Urine glucose detection Urine glucose detection NEGATIVE NEGATIVE 03/18/2018 [facility] Urine ketones detection by automated test strip Urine ketones detection by automated test strip NEGATIVE NEGATIVE 03/18/2018 [facility] Urine leukocyte esterase detection by dipstick Urine leukocyte esterase detection by dipstick 2+ NEGATIVE 03/18/2018 [facility] Urine nitrite detection Urine nitrite detection NEGATIVE NEGATIVE 03/18/2018 [facility] Urine pH measurement by automated test strip Urine pH measurement by automated test strip 6 5 - 7 03/18/2018 [facility] Urine protein measurement by test strip (mass/volume) Urine protein measurement by test strip (mass/volume) TRACE NEGATIVE 03/18/2018 [facility] Urine total bilirubin measurement (mass/volume) Urine total bilirubin measurement (mass/volume) NEGATIVE NEGATIVE 03/18/2018 [facility] Urine urobilinogen measurement by test strip (mass/volume) Urine urobilinogen measurement by test strip (mass/volume) 0.2 0.2 - 1 03/18/2018 [facility] Bone Density DXA [employer] MA Bone Density DXA [employer] MA - Bone Density DXA [employer] MA BONE DENSITY EVALUATION: 03/15/2016 CLINICAL DATA: Post menopausal. FINDINGS: Bone density evaluation was performed 03/15/2016 on the AP L1-L3 region of spine using a Hologic unit. The BMD average for the exam is 0.907 g/cm2. The T-score is -1.00 and the Z-score is 1.10. This matches the World Health Organization's criteria for normal bone density and places the patient within normal limits of fracture risk. An additional bone density evaluation was performed 03/15/2016 on the right femur neck using a Hologic unit. The BMD average for the exam is 0.530 g/cm2. The T-score is -2.90 and the Z-score is -1.10. This matches the World Health Organization's criteria for osteoporosis and places the patient at a high risk for fracture. An additional bone density evaluation was performed 03/15/2016 on the right hip using a Hologic unit. The BMD average for the exam is 0.734 g/cm2. The T-score is -1.70 and the Z-score is -0.20. This matches the World Health Organization's criteria for osteopenia and places the patient at a medium risk for fracture. An additional bone density evaluation was performed 03/15/2016 on the left femur neck using a Hologic unit. The BMD average for the exam is 0.517 g/cm2. The T- score is -3.00 and the Z-score is -1.20. This matches the World Health Organization's criteria for osteoporosis and places the patient at a high risk for fracture. An additional bone density evaluation was performed 03/15/2016 on the left hip using a Hologic unit. The BMD average for the exam is 0.650 g/cm2. The T-score is -2.40 and the Z-score is -0.80. This matches the World Health Organization's criteria for osteopenia and places the patient at a medium risk for fracture. IMPRESSION: OSTEOPOROSIS Patient is at high risk for fracture. This exam was dictated and interpreted by [id number] for MERCEDES Arias. Miguel Gong M.D. cm/penrad:03/18/2016 16:01:30 [employer] Supervisor: Regine Padilla RTAshleyR)(M), [facility] 03/15/2016 - - Read by: Darío Diamond MD Dictated Date/time: 03/18/16 16:01 Electronically Signed by: Darío Diamond MD 03/18/16 16:01 FINAL REPORT MERCEDES Arias Digital Mammo Screening Susan MA Digital Mammo Screening Susan MA - DIGITAL MAMMO SCREENING SSUAN MA BILATERAL DIGITAL SCREENING MAMMOGRAM WITH CAD: 03/15/2016 CLINICAL: Z12.31 Encounter For Screening Mammogram For Malignant Neoplasm Of Breast. Current study was evaluated with a Computer Aided Detection (CAD) system. No prior exams were available for comparison. There are scattered fibroglandular densities in both breasts. There are benign vascular calcifications in both breasts. No significant masses, calcifications, or other findings are seen in either breast. IMPRESSION: BENIGN There is no mammographic evidence of malignancy. A 1 year screening mammogram is recommended. Miguel Gong M.D. cm/penrad:03/15/2016 14:37:33 [employer] Supervisor: Trina Holly RT(R)(M), [facility] This exam was dictated and interpreted by [id number] for PENNY Villegas. letter sent: Normal exam Mammogram BI-RADS: 2 Benign 03/15/2016 - - Read by: Darío Diamond MD Dictated Date/time: 03/15/16 14:37 Electronically Signed by: Darío Diamond MD 03/15/16 14:37 FINAL REPORT MERCEDES Arias Bacterial urine culture Bacterial urine culture Urine Culture [facility] Vital Signs Vital Sign Value Date Comments Source Encounters Location Location Details Encounter Type Encounter Number Reason For Visit Attending Provider ADM Date DC Date Status Source [facility] [place] [facility] [id number] Usama Hansen 03/15/2016 03/16/2016 MERCEDES Arias Departed Emergency Room [id number] WON SLAUGHTER MD 03/11/2018 03/11/2018 [facility] Discharged Inpatient (obs) [id number] KATYA HSIEH MD 03/18/2018 03/20/2018 [facility] Procedures Procedure Code Date Perfomer Comments Source CT of abdomen and pelvis without contrast [id number] 03/19/2018 JORI [facility]
--- OUTSIDE RECORDS SUMMARY | 2019-02-20 07:39 | XMS REPORT ---
Author Author [facility] Address Unknown Phone Unavailable Care Team Providers Care Hvac Specialist Name Role Phone KATYA HSIEH Unavailable Unavailable Payers Payer Name Policy Type Policy Number Effective Date Expiration Date Problems This patient has no known problems. Allergies, Adverse Reactions, Alerts Allergy Name Allergy Type Status Severity Reaction(s) Onset Date Inactive Date Treating Clinician Comments iodine DA Active SV 2013-03-29 00:00:00 Shellfish DA Active NE 2012-06-15 00:00:00 Medications This patient has no known medications. Results Test Description Test Time Test Comments Text Results Atomic Results Result Comments D-DIMER 2018-11-15 22:32:00 D-DIMER (test code=DDIMER) < 100 ng/ml < 600 ADD [id number] 21:54:00* Test Item Value Reference Range Comments GLUBED (test code=GLUBED) 177 mg/dL 74-106 Performed by certified thread milling machine set up operator at [facility] URINALYSIS [id number] 21:21:00* Test Item Value Reference Range Comments UA COLOR (test code=COLU) YELLOW YELLOW UA APPEARANCE (test code=APPU) CLEAR CLEAR UA GLUCOSE DIPSTICK (test code=DGLUU) 50 (Trace) mg/dL NEGATIVE UA BILIRUBIN DIPSTICK (test code=BILU) NEGATIVE mg/dL NEGATIVE UA KETONE DIPSTICK (test code=KETU) neg mg/dL NEGATIVE UA SPECIFIC GRAVITY (test code=SGU) 1.020 1.001-1.035 UA BLOOD DIPSTICK (test code=SALLY) neg Cas/uL NEGATIVE UA PH DIPSTICK (test code=SABINO) 5.0 5.0-8.0 UA PROTEIN DIPSTICK (test code=PROU) 15 (TRACE) mg/dL Neg-15 UA UROBILINIOGEN DIPSTICK (test code=URO) 1 mg/dL 0.0-0.2 UA NITRITE DIPSTICK (test code=GIUSEPPE) NEGATIVE NEGATIVE UA LEUKOCYTE ESTERASE DIPSTICK (test code=LEUU) 100/uL (2+) uL NEGATIVE UA WBC (test code=WBCU) 0-5 per HPF 0-5 IN SOME URINARY TRACT INFECTIONS THERE MAY NOT BE ENOUGHWBCs IN THE URINE TO TRIGGER AN AUTOMATIC (REFLEX) URINECULTURE. A SEPERATE ORDER FOR URINE CULTURE IS RECOMMENDEDIF THERE IS STRONG SUPPORT FOR A URINARY TRACT INFECTIONCLINICALLY. UA RBC (test code=RBCU) 0-2 per HPF 0-5 UA EPITHELIAL CELLS (test code=EPIU) Few (2-5/hpf) per HPF Few UA BACTERIA (test code=BACU) MODERATE per HPF NONE Urine Source? Clean CatchURINALYSIS [id number] 21:14:00* Test Item Value Reference Range Comments UA COLOR (test code=COLU) YELLOW YELLOW UA APPEARANCE (test code=APPU) CLEAR CLEAR UA GLUCOSE DIPSTICK (test code=DGLUU) 50 (Trace) mg/dL NEGATIVE UA BILIRUBIN DIPSTICK (test code=BILU) NEGATIVE mg/dL NEGATIVE UA KETONE DIPSTICK (test code=KETU) neg mg/dL NEGATIVE UA SPECIFIC GRAVITY (test code=SGU) 1.020 1.001-1.035 UA BLOOD DIPSTICK (test code=SALLY) neg Cas/uL NEGATIVE UA PH DIPSTICK (test code=SABINO) 5.0 5.0-8.0 UA PROTEIN DIPSTICK (test code=PROU) 15 (TRACE) mg/dL Neg-15 UA UROBILINIOGEN DIPSTICK (test code=URO) 1 mg/dL 0.0-0.2 UA NITRITE DIPSTICK (test code=GIUSEPPE) NEGATIVE NEGATIVE UA LEUKOCYTE ESTERASE DIPSTICK (test code=LEUU) 100/uL (2+) uL NEGATIVE UA WBC (test code=WBCU) per HPF 0-5 Urine Source? Clean CatchCREATINE KINASE (CK)2018-11-15 21:03:00* Test Item Value Reference Range Comments CREATINE KINASE (CK) (test code=CK) 41 U/L 26-192 ADD [id number] 21:03:00* Test Item Value Reference Range Comments CKMB (test code=CKMBT) 0.5 ng/mL 0.0-5.0 ADD [id number] 21:03:00* Test Item Value Reference Range Comments MYOGLOBIN (test code=MYOG) 45 ng/mL 10.0-92.0 ADD ONBASIC METABOLIC [id number] 19:44:00* Test Item Value Reference Range Comments SODIUM (test code=NA) 139 mmol/L 135-148 POTASSIUM (test code=K) 4.6 mmol/L 3.5-5.1 CHLORIDE (test code=CL) 102 mmol/L 101-109 CARBON DIOXIDE (test code=CO2) 25.7 mmol/L 21-32 ANION GAP (test code=GAP) 16 mmol/L 10-20 GLUCOSE (test code=GLU) 311 mg/dL 74-106 BLOOD UREA NITROGEN (test code=BUN) 30 mg/dL 3-21 GLOMERULAR FILTRATION RATE (test code=GFR) 44 mL/min >=60 Estimated GFR by using Modified MDRD formula.Chronic kidney disease is defined as either kidney damageor GFR <60 mL/min/1.73 m2 for >3 months. CREATININE (test code=CREAT) 1.21 mg/dL 0.55-1.3 BUN/CREATININE RATIO (test code=BUN/CREA) 24.8 10-20 CALCIUM (test code=CA) 9.3 mg/dL 8.4-10.2 [id number] 19:44:00* Test Item Value Reference Range Comments TROPONIN-I (test code=TROPI) 0.03 ng/mL 0.00-0.056 - XR CHEST 1 [id number] 19:42:00 Name: MILANCLAIR MANNY [facility] : 1945 Age/S:73 /F [address] [facility] Unit#:[id number] Loc: [place] [address] Phys: Azael Patterson MD Dis Date: PHONE #: [phone] Status: REG ER FAX #: [phone] Exam Date: 11/15/2018 Reason: CHEST PAIN EXAMS: CPT CODE: [id number] XR CHEST 1 V [id number] REASON FOR EXAM: CHEST PAIN EXAM ORDER DATE: 11/15/2018 6:43 PM Ordering Zelda: Azael Patterson MD PROCEDURE: - XR CHEST 1 V COMPARISON: FINDINGS: Portable AP frontal view of the chest obtained at 6:55 PM shows clear lungs. There is no evidence of consolidation. There is no evidence of effusion. The heart size is within normal limits. Pulmonary vasculatures are unremarkable. IMPRESSION: No active disease. at 194 Reported and signed by: Abdiaziz Couch M.D. CC: Azael Patterson MD Technologist: JUAN HSIEH RT(R),RDMS,CT Trnscrpt Data: 11/15/2018 (1941) t.LAQUITAR.VTL Orig Print D/T: S: 11/15/2018 (1944) PAGE 1 Signed Report CBC W/O [id number] 19:22:00* Test Item Value Reference Range Comments WHITE BLOOD CELL (test code=WBC) 9.4 K/mm3 4.5-12.5 RED BLOOD CELL (test code=RBC) 4.25 mill/mm3 3.7-5.2 HEMOGLOBIN (test code=HGB) 12.4 gram/dL 11.5-15.5 HEMATOCRIT (test code=HCT) 37.9 % 36.0-46.0 MEAN CELL VOLUME (test code=MCV) 89.2 fL 80-98 MEAN CELL HGB (test code=MCH) 29.2 picogram 27.0-33.0 MEAN CELL HGB CONCETRATION (test code=MCHC) 32.7 gram/dL 33.0-36.0 RED CELL DISTRIBUTION WIDTH (test code=RDW) 14.7 % 11.6-16.2 RED CELL DISTRIBUTION WIDTH SD (test code=RDW-SD) 46.6 fL 39.1-52.0 PLATELET COUNT (test code=PLT) 202 K/mm3 150-450 MEAN PLATELET VOLUME (test code=MPV) 10.1 fL 6.7-11.0 B-TYPE NATRIURETIC [id number] 19:21:00* Test Item Value Reference Range Comments B-TYPE NATRIURETIC PEPTIDE (test code=BNP) 96.4 pg/mL 0-100 CT ABDOMEN/PELVIS [id number] 15:30:00 [place] [address] Patient Name: CLAIR YATES MR #: [id number] : 1945 Age/Sex: 73/F Req #: [id number] Adm Physician: KATYA HSIEH MD Ordered by: KATYA HSIEH MD Report #: [id number] Location: MED/SURG Room/Bed: [facility] Procedure: [id number] CT/CT ABDO MEN/PELVIS WO Exam Date: 03/19/18 Exam Time: 1521 REPORT STATUS: Signed EXAM: CT Abdomen and Pelvis WITHOUT contrast IN DICATION: COMPARISON: None. TECHNIQUE: Abdomen and pelvis wer e scanned utilizing a multidetector helical scanner from the lung base to the pubic symphysis without administration of IV contrast. Absence of intravenous contrast decreases sensitivity for detection of focal lesions and vascular pat hology. Coronal and sagittal reformations were obtained. Routine protocol was performed. IV CONTRAST: None ORAL CONTRAST: Water COMPLICATIONS: None RADIATION DOSE: Total DLP: 617.44 mGy*cm Estimated effective dose: (DLP x 0.015 x size factor) mSv CTDIvol has b een reviewed. It is below the limits set by the Radiation Protocol Committee ( RPC). FINDINGS: LINES and TUBES: None. LOWER THORAX: Unremarkabl e. Mild dependent atelectasis. HEPATOBILIARY: Hepatic steatosis. Otherwise , unenhanced liver is unremarkable. No biliary ductal dilation. GALLBLAD MAICOL: Surgically absent. SPLEEN: No splenomegaly. PANCREAS: Fatty invo lution of the pancreas. No ductal dilatation. ADRENALS: No adrenal nodule s KIDNEYS/URETERS: No hydronephrosis. Limited for evaluation of renal parenchyma without intravenous contrast. Mild nonspecific bilateral perinephri c fat stranding. Mild focal left inferior pole scarring. No stones. GI T RACT: No abnormal distention, wall thickening, or evidence of bowel obstructio n. Sigmoid diverticulosis without evidence of diverticulitis. Appendix is no t visualized. PELVIC ORGANS/BLADDER: Hysterectomy. Bladder is unremarkable. LYMPH NODES: No lymphadenopathy. VESSELS: Mild to moderate aortoiliac atherosclerotic disease. PERITONEUM / RETROPERITONEUM: No free air or flui d. BONES: Degenerative changes of lumbar spine. Grade 1 retrolisthesis of L 5 in relation to L4. SOFT TISSUES: Unremarkable. IMPRESS ION: 1. Limited study without intravenous contrast. 2. No evidence of nep hrolithiasis or obstructive urolithiasis. 3. Hepatic steatosis. 4. Sigmoid diverticulosis without evidence of diverticulitis. Signed by: Dr. Nic espino MD on 03/19/2018 4:14 PM Dictated By: NIC STUART MD Electronica lly Signed By: NIC STUART MD on 03/19/18 1614 Transcribed By: IMAN on 07/27 1614 COPY TO: KATYA HSIEH MD CHEST SINGLE (PORTABLE) 2018-03-18 21:46:00 [place] [address] Patient Name: CLAIR YATES MR #: [id number] : 1945 Age/Sex: 73/F Req #: [id number] Adm Physician: Ordered by: COLE MOJICA MD Report #: [id number] Location: ER Room/Bed: Procedure: [id number] DX/CHEST SINGLE (PORTABLE) Olena gonzalez Date: 03/18/18 Exam Time: 2119 REPORT STATUS: Signed EXAMINATION: CHEST SINGLE (PORTABLE) INDICATION: Chest pain. COMPARISON: None FINDINGS: TUBES and LINES: None . LUNGS: Lungs are well inflated. Lungs are clear. There is no evidence of pneumonia or pulmonary edema. PLEURA: No pleural effusion or pneumot horax. HEART AND MEDIASTINUM: The cardiomediastinal silhouette is unremark able. BONES AND SOFT TISSUES: No acute osseous lesion. Soft tissues a re unremarkable. UPPER ABDOMEN: No free air under the diaphragm. IMPRESSION: No acute thoracic abnormality. Signed by: Dr. Albert rivera M.D. on 03/18/2018 9:46 PM Dictated By: ALBERT CHAMBERS MD Electro nically Signed By: ALBERT CHAMBERS MD on 03/18/182145 Transcribed By: HOLLAND HSIEH on 03/18/182145 COPY TO: COLE MOJICA MD
--- OUTSIDE RECORDS SUMMARY | 2019-02-20 07:39 | XMS REPORT | Summary of Care ---
Author Author [facility] Organization [facility] Address Unknown Phone Unavailable Encounter HQ Susan_junior(FIN) [id number] Date(s): 03/15/16 - 03/15/16 [facility] [address] [place] [address] [phone] Discharge Disposition: Home Attending Physician: Usama Hansen MD Vital Signs No data available for this section Problem List Condition Effective Dates Status Health Status Informant Chest Active pain(Confirmed) Cholesterol(Confirme Active d) Depression(Confirmed Resolved ) Diabetes Active mellitus(Confirmed) DM - Diabetes Active mellitus(Confirmed) HTN - Active Hypertension(Confirm ed) HTN - Active Hypertension(Confirm ed) Hyperlipidemia(Confi Active rmed) Hysterectomy(Confirm Active ed) Allergies, Adverse Reactions, Alerts Substance Reaction Severity Status NKDA Active Medications No data available for this section Results No data available for this section Immunizations Given and Recorded Vaccine Date Status Refusal Reason influenza virus vaccine, inactivated 12/04/09 Given pneumococcal 23-valent vaccine 12/04/09 Given Procedures No data available for this section Social History Social History Type Response Assessment and Plan No data available for this section
--- NOTE | 2019-02-20 10:50 | NUR ---
1050 Received pt form Inspector Shells Identiferx2 Christa Burdick received handoff.No fix Rt Groin Mnynx and Rt Tr band (13cc) titrate at 12noon. Sleepy responds to verbal commands appropriately Family at bedside. Daughter Qing Resp shallow and regular 97% on room air. Abdomen soft and non-tender Bilateral PPx4 PD/Dp left iv off left and w/o s/s infiltration 500ccNS infused intra-procedure. No gross signs of pain,pallor,pressure or dysrhythmia.Denies c/o. Rt TR band intact and rt Mnyx dressing to groin w/o hematoma or oozing. ds/rn
--- NOTE | 2019-02-20 12:00 | NUR ---
1200 Tr band titration initiated (13cc in balloon) No gross signs pain pallor or bleeding -2cc positive 11cc 1215 -2cc positive 8cc 1230 -2cc Positive 6cc 1300 Tr band Titration completed pt ,POC reviewed iv removed site w/o s/s ingiltration Coban dressing in place to tr band site with arm splint.Dc home with stage driver. NO GROSS SIGNS OF PAIN PALLOR OR DYSRHYTHMIA. ds/rn
--- NOTE | 2019-02-20 13:00 | NUR ---
1300p Tr band titration completed sterile 2x2 and Teg[address]erm in place with Coban and wrist splint. Adequate radial pulse. Explained POC and reviewed dc papers has copies. Dressed and assisted to bathroom with staff . Escorted to car per w/c with family mail truck driver. No gross signs of pain pallor pressure or dysrhythmia.No c/o of CP or SOB.
--- NOTE | 2019-02-21 00:15 | Operative Report ---
DATE OF PROCEDURE: SURGEON: Gilson Gilliam DO PROCEDURES PERFORMED: 1. Conscious sedation, 26 minutes. 2. Selective coronary angiography x2. 3. Left heart catheterization. PREPROCEDURE DIAGNOSIS: Abnormal stress test with symptoms. PROCEDURE DIAGNOSIS: Nonobstructive coronary artery disease. ESTIMATED BLOOD LOSS: Less than 20 mL. SPECIMENS REMOVED: None. PROCEDURE IN DETAIL: After informed consent was obtained, the patient was brought to the cardiac catheterization laboratory in a fasting and nonsedated state. Bilateral groins were prepped and draped in usual sterile fashion. A 2% lidocaine was instilled over the right anterior wrist for local anesthesia. Using micropuncture needle, the right radial artery was accessed via the modified Seldinger technique and a 6-Nepalese glide sheath was placed. Next, diagnostic coronary angiography and left heart catheterization was performed using a TIG catheter. The patient tolerated the procedure well with no immediate complications, transferred back to room in stable condition. PROCEDURE FINDINGS: 1. Left main coronary artery is patent without significant disease. 2. The left anterior descending coronary has a mild proximal 20% stenosis. The 2nd diagonal branch has an ostial 50% stenosis. This vessel is less than 2 mm in diameter. 3. The circumflex coronary provides two obtuse marginal vessels. The 1st of which is a very small vessel with an ostial 50% to 60% non-flow limiting stenosis. 4. The right coronary artery is a dominant vessel and provides posterior descending coronary artery. There is mild luminal irregularities present in this coronary system. 5. Left ventricular end-diastolic pressure with no aortic valve gradient present upon pullback. IMPRESSION: Nonobstructive coronary artery disease. RECOMMENDATIONS: Aggressive medical management and risk factor modification. Gilson Gilliam DO BM/MODL /[id number]
== END | disposition home or self-care (01) ==
LOC: CATH LAB 07:22
PROVIDERS: ATTEND Internal Medicine Cardiovascular Disease
DX: I25.10 Atherosclerotic heart disease of native coronary artery without angina pectoris (principal); R94.39 Abnormal result of other cardiovascular function study; I10 Essential (primary) hypertension; E78.5 Hyperlipidemia, unspecified; R06.00 Dyspnea, unspecified; E11.9 Type 2 diabetes mellitus without complications; Z01.812 Encounter for preprocedural laboratory examination; Z79.02 Long term (current) use of antithrombotics/antiplatelets; Z79.82 Long term (current) use of aspirin; Z79.84 Long term (current) use of oral hypoglycemic drugs; Z68.30 Body mass index [BMI] 30.0-30.9, adult; Z86.73 Personal history of transient ischemic attack (TIA), and cerebral infarction without residual deficits; Z82.49 Family history of ischemic heart disease and other diseases of the circulatory system
CPT/HCPCS: 36415; 80053; 85025; 85610; 93458; C1760; C1769 ×2; C1887; J1200; J2001; J2250; J2930; J7030; Q9967

== ENCOUNTER 2021-05-01 02:41 | Emergency (ER) | payer MEDICARE ==
[~2021-05-01] VITALS: Ht 162.6 cm; Wt 74.8 kg
[~2021-05-01 02:41] MED LIST changes: -DIPHENHYDRAMINE HCL INJ 50 MG/ML VIAL ONE; -FAMOTIDINE 20 MG/2 ML VIAL IV ONE; -FENTANYL CITRATE/PF 100MCG/2 ML INJ ONE; -HEPARIN SOD/SOD CHLORIDE 2,000 ML ONE; -IOPAMIDOL 370 MG/ML 200 ML INFUS..BTL INJ ONE; -LIDOCAINE HCL 2% LOCAL 20 ML VIAL ONE; -METHYLPREDNISOLONE SOD SUCC 125 MG/2ML VIAL ONE; -MIDAZOLAM HCL 2 MG/2 ML VIAL ONE; -SODIUM CHLORIDE 0.9% 1000ML 1,000 ML ONE; -VERAPAMIL HCL 2.5 MG/ML 2 ML VIAL ONE
== END 2021-05-01 03:08 | disposition home or self-care (01) ==
LOC: ER 02:55
DX: J02.9 Acute pharyngitis, unspecified (principal); F03.90 Unspecified dementia, unspecified severity, without behavioral disturbance, psychotic disturbance, mood disturbance, and anxiety; I10 Essential (primary) hypertension; E11.9 Type 2 diabetes mellitus without complications
CPT/HCPCS: 99283

== ENCOUNTER 2021-05-03 09:04 | Emergency (ER) | payer MEDICARE ==
[~2021-05-03] VITALS: Ht 162.6 cm; Wt 74.8 kg
== END 2021-05-03 11:45 | disposition home or self-care (01) ==
LOC: ER 09:17
DX: J40 Bronchitis, not specified as acute or chronic (principal); I10 Essential (primary) hypertension; E11.9 Type 2 diabetes mellitus without complications; F41.8 Other specified anxiety disorders; F03.90 Unspecified dementia, unspecified severity, without behavioral disturbance, psychotic disturbance, mood disturbance, and anxiety
CPT/HCPCS: 71045; 99283; U0002

== ENCOUNTER 2021-11-07 13:07 | Emergency (ER) | payer MEDICARE ==
[~2021-11-07] VITALS: Ht 162.6 cm; Wt 74.8 kg
[2021-11-07] MEDS ORDERED: VENTOLIN HFA18 GM INH (13:33)
[2021-11-07] MEDS ORDERED: BROMFED DM COU118 ML PO (13:33)
[2021-11-07] MEDS ORDERED: AZITHROMYCIN250 MG PO (13:33)
== END 2021-11-07 15:39 | disposition home or self-care (01) ==
LOC: FSED 13:14
DX: R05.9 Cough, unspecified (principal); J40 Bronchitis, not specified as acute or chronic; F03.90 Unspecified dementia, unspecified severity, without behavioral disturbance, psychotic disturbance, mood disturbance, and anxiety; I10 Essential (primary) hypertension; E11.9 Type 2 diabetes mellitus without complications; F41.9 Anxiety disorder, unspecified; E78.5 Hyperlipidemia, unspecified
CPT/HCPCS: 71046; 99283

== ENCOUNTER 2023-02-16 16:02 | Emergency (ER) | payer MEDICARE, OTHER ==
[~2023-02-16] VITALS: Ht 160 cm; Wt 74.6 kg
[~2023-02-16 16:02] MED LIST changes: +AZITHROMYCIN250 MG PO; +BROMFED DM COU118 ML PO; +VENTOLIN HFA18 GM INH
[2023-02-16] MEDS ORDERED: ACETAMINOPHEN 325 MG TAB ONE (16:51)
[2023-02-16] MEDS ORDERED: ACETAMINOPHEN 325 MG TAB PO ONE (17:00)
[2023-02-16 18:15] VITALS: O2SAT 98
== END 2023-02-16 19:17 | disposition home or self-care (01) ==
LOC: FSED 16:18
DX: S39.012A Strain of muscle, fascia and tendon of lower back, initial encounter (principal); W01.0XXA Fall on same level from slipping, tripping and stumbling without subsequent striking against object, initial encounter; Y93.01 Activity, walking, marching and hiking; Y92.89 Other specified places as the place of occurrence of the external cause; F03.90 Unspecified dementia, unspecified severity, without behavioral disturbance, psychotic disturbance, mood disturbance, and anxiety; I12.9 Hypertensive chronic kidney disease with stage 1 through stage 4 chronic kidney disease, or unspecified chronic kidney disease; E11.22 Type 2 diabetes mellitus with diabetic chronic kidney disease; N18.9 Chronic kidney disease, unspecified; E78.5 Hyperlipidemia, unspecified; I25.10 Atherosclerotic heart disease of native coronary artery without angina pectoris; F32.A Depression, unspecified; F41.9 Anxiety disorder, unspecified; Z86.73 Personal history of transient ischemic attack (TIA), and cerebral infarction without residual deficits
CPT/HCPCS: 70450; 71250; 72131; 74176; 99283